=== PATIENT | male | born 1985 | race Two or more races ===

== ENCOUNTER 2018-09-30 07:30 | Emergency (ER) | payer OTHER ==
[~2018-09-30] VITALS: Ht 175.3 cm; Wt 122.5 kg
--- NOTE | 2018-09-30 07:42 | NUR ---
TO ER BED 2, CONNECTED TO THE MONITOR,SL ESTABLISHED, BLOOD DRAWN FOR LABS.
[2018-09-30] MEDS ORDERED: PANTOPRAZOLE 40 MG VIAL ONE (07:44)
[2018-09-30] MEDS ORDERED: ONDANSETRON HCL/PF 4 MG/2 ML VIAL ONE (07:44)
[2018-09-30] MEDS ORDERED: HYDROMORPHONE 1 MG/1 ML DISP.SYRIN ONE (07:44)
[2018-09-30 07:48] LABS: BASOPHILS # (AUTO) 0.3 /CMM (0.0-0.2); BASOPHILS % (AUTO) 2.6 % (0.0-2.0); EOSINOPHILS % (AUTO) 2.7 % (0.0-6.0); HEMATOCRIT 50 % (39-51); HEMOGLOBIN 17.1 g/dL (13.5-17.5); LYMPHOCYTES # (AUTO) 4.4 /CMM (0.8-4.8); LYMPHOCYTES % (AUTO) 34.8 % (20.0-44.0); MEAN CORPUSCULAR HGB CONC 34 g/dl (31.0-36.0); MEAN CORPUSCULAR VOLUME 90 fL (80-96); MONOCYTES # (AUTO) 0.9 /CMM (0.1-1.30); NEUTROPHILS # (AUTO) 6.6 /CMM (1.8-8.9); NEUTROPHILS % (AUTO) 52.9 % (43.0-81.0); PLATELET COUNT (AUTO) 207 /CMM (150-450); RED BLOOD CELL COUNT(AUTO) 5.54 MIL/uL (4.5-6.0); WHITE BLOOD COUNT (AUTO) 12.6 K/uL (4.3-11.0)
[2018-09-30 07:50] VITALS: BP 164/78
[2018-09-30 07:54] LABS: CALCIUM, SERUM 8.5 mg/dL (8.5-10.1); CARBON DIOXIDE 23 mmol/L (21-32); CHLORIDE 106 mmol/L (98-107); CREATININE 1.2 mg/dL (0.6-1.3); GLUCOSE 152 mg/dL (74-106); POTASSIUM 3.5 mmol/L (3.5-5.1); SODIUM SERUM 142 mmol/L (136-145); UREA NITROGEN, BLOOD 22 mg/dL (7-18)
[2018-09-30 07:59] LABS: ALANINE AMINOTRANSFERASE 43 U/L (12-78); ALBUMIN 3.8 g/dL (3.4-5.0); ALKALINE PHOSPHATASE 102 U/L (46-116); ASPARTATE AMINOTRANSFERASE 17 U/L (15-37); BILIRUBIN,DIRECT 0.1 mg/dL (0.0-0.2); BILIRUBIN,TOTAL 0.7 mg/dL (0.2-1.0); LIPASE 120 U/L (73-393); TOTAL PROTEIN, SERUM 7.8 g/dL (6.4-8.2)
[2018-09-30] MEDS ORDERED: PANTOPRAZOLE 40 MG VIAL IV ONE (08:00)
[2018-09-30] MEDS ORDERED: ONDANSETRON HCL/PF 4 MG/2 ML VIAL IVP ONE (08:00)
[2018-09-30] MEDS ORDERED: HYDROMORPHONE INJ 2 MG/ML DISP.SYRIN IV ONE (08:00)
[2018-09-30] MEDS ORDERED: IV NS 0.9% 1,000 ML BAG IV ONE ×2 (08:00→09:00)
--- NOTE | 2018-09-30 08:16 | NUR ---
PT UNABLE TO PROVIDE URINE SAMPLE AT THIS TIME.
[2018-09-30 08:52] LABS: EOSINOPHILS % (MANUAL) 1 % (0-4); LYMPHOCYTES % (MANUAL) 35 % (16-48); MONOCYTES % (MANUAL) 10 % (0-11.0); NEUTROPHILS % (MANUAL) 54 (42-76)
--- NOTE | 2018-09-30 11:10 | NUR ---
Patient discharged to home in stable condition. Written and verbal after care instructions given. Patient verbalizes understanding of instruction. IV removed. Catheter intact and site benign. Pressure and 4x4 applied to site. No bleeding noted.
== END 2018-09-30 11:49 | disposition home or self-care (01) ==
LOC: ER 07:31
DX: R10.84 Generalized abdominal pain (principal)
CPT/HCPCS: 36415; 71045; 74176; 80048; 80076; 83690; 84484; 85025; 93005; 96374; 96375; 99284; C9113; J1170; J2405; J7030